=== PATIENT | female | born 1945 | race Caucasian/White ===

== ENCOUNTER 2018-11-16 07:07 | Day surgery (SDC) | payer MEDICARE ==
[~2018-11-16 07:07] MED LIST: Acetaminophen TAB* 325 MG PO PRN; Buffered Lidocaine 1% SYRIN* 1 ML/SYRINGE INTRADERM ONE
[2018-11-16] MEDS ORDERED: Midazolam* 1 MG/ML 2 ML VIAL (2 MG) ONE (08:41)
[2018-11-16] MEDS ORDERED: acetaZOLAMIDE TAB* 250 MG ONE (10:00)
[2018-11-16] MEDS ORDERED: Lidocaine 2% EPI 1:200000 MPF*10-20 ML VIAL ONE (10:00)
[2018-11-16] MEDS ORDERED: Neomycin/Polymy/Dex OPTH.SUSP* MAXITROL 0.1% 5 ML ONE (10:00)
[2018-11-16] MEDS ORDERED: Phenylephrine OPHTH SOL 2.5%* 2 ML ONE (10:00)
[2018-11-16] MEDS ORDERED: Ketorolac 0.5% OPHTH (NF) 0.5 % 5 ML BTL ONE (10:00)
[2018-11-16] MEDS ORDERED: Lidocaine 1%* 5 ML VIAL ONE (10:00)
[2018-11-16] MEDS ORDERED: Cyclopentolate 1% OPTH.SOL* 2 ML BTL ONE (10:00)
[2018-11-16] MEDS ORDERED: Povidone Iodine 5% OPTH* 30 ML BTL ONE (10:00)
[2018-11-16] MEDS ORDERED: Proparacaine 0.5% OPHTH.SOL* 15 ML BTL ONE (10:00)
--- NOTE | 2018-11-16 10:04 | OP ---
OPERATIVE NOTE: DATE OF OPERATION: 11/16/18 DATE OF : 47 SURGEON: Luis Enrique Wilson M.D. PREOPERATIVE DIAGNOSIS: Cataract, right eye. POSTOPERATIVE DIAGNOSIS: Cataract, right eye. OPERATIVE PROCEDURE: Extracapsular cataract extraction with intraocular lens implant, right eye. PROCEDURE: The patient was brought to the operating room after being given 1/2% Alcaine with epineph rine drops in the preoperative area. The eye was prepped and draped in the usual sterile fashion. S terile drape and eyelid speculum were placed. Again, topical 1/2% Alcaine with epinephrine was given . A paracentesis incision was made at the 9 o'clock position with the No.75 blade. Clear cornea inc ision 2.2 x 2.2-mm was created at the 12 o'clock position starting at the anterior limbus using the 2 .2-mm keratome. The anterior chamber was irrigated with 0.4 mL of 1% non-preservative intracameral l idocaine and filled with DisCoVisc. A capsulorrhexis was completed using the cystotome and the Utrat a forceps. Hydrodissection was performed with balanced salt solution. The lens nucleus was removed w ith the Phacoemulsification handpiece without incident. Cortex was removed with the irrigation-aspir ation handpiece. The capsular bag was re-inflated using DisCoVisc and an SN60WF 19.5 Implant was ins erted with the shooter. The irrigation-aspiration handpiece was used to remove all residual DisCoVis c. The eye was refilled with balanced salt solution and the wound checked and found to be watertight . Topical Maxitrol drops were given. [id number]/[facility] #: [id number]
[2018-11-16 10:23] VITALS: BP 157/86
== END 2018-11-16 09:48 | disposition home or self-care (01) ==
LOC: OREAST 07:07
PROVIDERS: ATTEND Specialist
DX: H25.811 Combined forms of age-related cataract, right eye (principal); H35.373 Puckering of macula, bilateral; I10 Essential (primary) hypertension; M35.3 Polymyalgia rheumatica
CPT/HCPCS: A9270-GY; J2250; V2632

== ENCOUNTER 2018-11-30 07:51 | Day surgery (SDC) | payer MEDICARE ==
[2018-11-30] MEDS ORDERED: Midazolam* 1 MG/ML 2 ML VIAL (2 MG) ONE (10:00)
[2018-11-30 11:01] VITALS: BP 140/78
[2018-11-30] MEDS ORDERED: Phenylephrine OPHTH SOL 2.5%* 2 ML ONE (11:17)
[2018-11-30] MEDS ORDERED: Ketorolac 0.5% OPHTH (NF) 0.5 % 5 ML BTL ONE (11:17)
[2018-11-30] MEDS ORDERED: Lidocaine 2% EPI 1:200000 MPF*10-20 ML VIAL ONE (11:17)
[2018-11-30] MEDS ORDERED: Lidocaine 1%** 5 ML VIAL ONE (11:17)
[2018-11-30] MEDS ORDERED: Cyclopentolate 1% OPTH.SOL* 2 ML BTL ONE (11:17)
[2018-11-30] MEDS ORDERED: acetaZOLAMIDE TAB* 250 MG ONE (11:17)
[2018-11-30] MEDS ORDERED: Povidone Iodine 5% OPTH* 30 ML BTL ONE (11:17)
[2018-11-30] MEDS ORDERED: Proparacaine 0.5% OPHTH.SOL* 15 ML BTL ONE (11:17)
[2018-11-30] MEDS ORDERED: Neomycin/Polymy/Dex OPTH.SUSP* MAXITROL 0.1% 5 ML ONE (11:17)
--- NOTE | 2018-11-30 13:14 | OP ---
DATE OF OPERATION: 11/30/2018. DATE OF : 1945. SURGEON: Luis Enrique Wilson M.D. PREOPERATIVE DIAGNOSIS: Cataract left eye. POSTOPERATIVE DIAGNOSIS: Cataract left eye. OPERATIVE PROCEDURE: Extracapsular cataract extraction with intraocular lens implant left eye. PROCEDURE: The patient was brought to the operating room after being given 1/2% Alcaine with epineph rine drops in the preoperative area. The eye was prepped and draped in the usual sterile fashion. S terile drape and eyelid speculum were placed. Again, topical 1/2% Alcaine with epinephrine was given . A paracentesis incision was made at the 3 o'clock position with the No.75 blade. Clear cornea inc ision 2.2 x 2.2-mm was created at the 6 o'clock position starting at the anterior limbus using the 2. 2-mm keratome. The anterior chamber was irrigated with 0.4 mL of 1% non-preservative intracameral li docaine and filled with DisCoVisc. A capsulorrhexis was completed using the cystotome and the Utrata forceps. Hydrodissection was performed with balanced salt solution. The lens nucleus was removed wi th the Phacoemulsification handpiece without incident. Cortex was removed with the irrigation-aspira tion handpiece. The capsular bag was re-inflated using DisCoVisc and an [id number] implant was insert ed with the shooter, oriented to the 9 degree meridian. Horizontal reference gilliland were made with th e patient in a seated position. All measurements were confirmed with ORA. The irrigation- aspiratio n handpiece was used to remove all residual DisCoVisc. The eye was refilled with balanced salt solut ion and the wound checked and found to be watertight. Topical Maxitrol drops were given. [id number]/[facility] #: [id number]
== END 2018-11-30 11:12 | disposition home or self-care (01) ==
LOC: OREAST 07:51
PROVIDERS: ATTEND Specialist
DX: H25.812 Combined forms of age-related cataract, left eye (principal); H35.373 Puckering of macula, bilateral; I10 Essential (primary) hypertension; M35.3 Polymyalgia rheumatica
CPT/HCPCS: A9270-GY; J2250; V2787

== ENCOUNTER 2022-12-05 20:26 | Inpatient (IN) ==
[2022-12-05 21:09] LABS: ABS Basophils 0.1 10^3/uL (0.0-0.1); ABS Eosinophils 0.1 10^3/uL (0.0-0.5); ABS Lymphocytes 3.5 10^3/uL (1.0-4.8); ABS Monocytes 0.5 10^3/uL (0.0-0.9); ABS Neutrophils 7.2 10^3/uL (1.5-7.6); Hematocrit 44.8 % (35-45); Hemoglobin 14.7 g/dL (11.5-14.3); Mean Corpuscular Hemoglobin 29.1 pg (27-33); Mean Corpuscular Hgb Conc 32.9 g/dL (31-36); Mean Corpuscular Volume 88.2 fL (80-97); Mean Platelet Volume 10.3 fL (7.5-11.2); Platelet Count 192 10^3/uL (150-450); Red Blood Count 5.07 10^6/uL (3.63-4.92); Red Cell Distribution Width 13.8 % (12-17); White Blood Count 11.5 10^3/uL (3.8-11.8)
[2022-12-05 21:10] LABS: ABS Nucleated RBC 0.01 10^3/ul; Eosinophil % 0.9 %; Lymphocyte % 30.5 %; Nucleated Red Blood Cells % 0.1 /100 WBC (0.0-0.4)
[2022-12-05] MEDS ORDERED: Lactated Ringers 1000 ml BAG 1,000 ML IV ONE (21:23)
[2022-12-05 21:26] LABS: Albumin 4.4 g/dL (3.2-5.2); Albumin/Globulin Ratio 1.6 (1-3); Creatinine, Serum 0.86 mg/dL (0.51-0.95); Globulin 2.8 g/dL (2-4); Magnesium 1.9 mg/dL (1.9-2.7); Potassium 3.6 mmol/L (3.5-5.0); Total Bilirubin 1.5 mg/dL (0.2-1.0); Total Protein 7.2 g/dL (6.4-8.9)
[2022-12-05] MEDS ORDERED: Iodixanol (CONTRAST) 320 MG/ML 100 ML SDV IV ONE (21:38)
[2022-12-05] MEDS ORDERED: Ondansetron 4 mg VIAL 2 MG/ML 2 ml VIAL IV ONE (21:56)
[2022-12-05 22:05] LABS: TSH Ultra Thyroid Stim Horm 2.86 mcIU/mL (0.34-5.60)
[2022-12-06 01:38] LABS: High Sensitivity Troponin 1 Hr 17 pg/mL (<15)
[2022-12-06] MEDS: Metoprolol Tartrate 5 mg VIAL 5 ml VIAL (1 mg/ml) IV PRN ×2 (01:56→09:24)
[2022-12-06] MEDS ORDERED: Dextrose 50% Syringe 50 ml 25 GM/50 ML SYRINGE IV PUSH PRN (01:58)
[2022-12-06] MEDS ORDERED: Furosemide 40 mg/4 ml IV VIAL IV ONE ×2 (02:00→09:00)
[2022-12-06 05:48] LABS: ABS Basophils 0.1 10^3/uL (0.0-0.1); ABS Lymphocytes 2.8 10^3/uL (1.0-4.8); ABS Monocytes 0.7 10^3/uL (0.0-0.9); ABS Neutrophils 8.1 10^3/uL (1.5-7.6); ABS Nucleated RBC 0.02 10^3/ul; Eosinophil % 0.4 %; Hematocrit 43.6 % (35-45); Hemoglobin 14.3 g/dL (11.5-14.3); Lymphocyte % 23.7 %; Mean Corpuscular Hgb Conc 32.9 g/dL (31-36); Mean Corpuscular Volume 88.2 fL (80-97); Mean Platelet Volume 10.4 fL (7.5-11.2); Nucleated Red Blood Cells % 0.1 /100 WBC (0.0-0.4); Platelet Count 201 10^3/uL (150-450); Red Blood Count 4.94 10^6/uL (3.63-4.92); Red Cell Distribution Width 14.2 % (12-17); White Blood Count 11.6 10^3/uL (3.8-11.8)
[2022-12-06 06:04] LABS: Albumin 4.5 g/dL (3.2-5.2); Albumin/Globulin Ratio 1.7 (1-3); Calcium 9.6 mg/dL (8.6-10.3); Creatinine, Serum 0.9 mg/dL (0.51-0.95); Globulin 2.7 g/dL (2-4); Magnesium 1.8 mg/dL (1.9-2.7); Potassium 3.7 mmol/L (3.5-5.0); Total Bilirubin 1.6 mg/dL (0.2-1.0); Total Protein 7.2 g/dL (6.4-8.9); eGFR CKD-EPI 66.3 (>60)
[2022-12-06] MEDS: Furosemide 40 mg/4 ml IV VIAL IV SLOW PU SCH (08:20)
[2022-12-06] MEDS ORDERED: Magnesium Sulfate IV 1GM/100ML 1 GM/100 ML BAG IV ONE (09:42)
[2022-12-06] MEDS ORDERED: Potassium EFFERVES 25 meq TAB PO ONE (09:47)
[2022-12-06] MEDS ORDERED: Magnesium Sulfate 2 gm BAG 2 GM/50 ML BAG IVPB ONE (09:47)
[2022-12-07] MEDS: Metoprolol Tartrate 5 mg VIAL 5 ml VIAL (1 mg/ml) IV PRN ×2 (03:25→08:47)
[2022-12-07 06:07] LABS: ABS Basophils 0.1 10^3/uL (0.0-0.1); ABS Eosinophils 0.2 10^3/uL (0.0-0.5); ABS Lymphocytes 3.2 10^3/uL (1.0-4.8); ABS Monocytes 0.7 10^3/uL (0.0-0.9); ABS Neutrophils 7.6 10^3/uL (1.5-7.6); ABS Nucleated RBC 0.01 10^3/ul; Eosinophil % 1.5 %; Hemoglobin 13.8 g/dL (11.5-14.3); Lymphocyte % 27.4 %; Mean Corpuscular Hemoglobin 29.6 pg (27-33); Mean Corpuscular Hgb Conc 32.8 g/dL (31-36); Mean Corpuscular Volume 90.2 fL (80-97); Mean Platelet Volume 10.3 fL (7.5-11.2); Nucleated Red Blood Cells % 0.1 /100 WBC (0.0-0.4); Platelet Count 180 10^3/uL (150-450); Red Blood Count 4.66 10^6/uL (3.63-4.92); Red Cell Distribution Width 13.9 % (12-17); White Blood Count 11.7 10^3/uL (3.8-11.8)
[2022-12-07 06:19] LABS: Calcium 9.1 mg/dL (8.6-10.3); Creatinine, Serum 1.07 mg/dL (0.51-0.95); Magnesium 2.3 mg/dL (1.9-2.7); Potassium 3.6 mmol/L (3.5-5.0); eGFR CKD-EPI 53.8 (>60)
[2022-12-07] MEDS: Furosemide 40 mg/4 ml IV VIAL IV SLOW PU SCH (08:01)
[2022-12-07 09:56] LABS: Albumin 4.2 g/dL (3.2-5.2); Albumin/Globulin Ratio 1.8 (1-3); Direct Bilirubin 0.2 mg/dL (0.03-0.18); Globulin 2.4 g/dL (2-4); Indirect Bilirubin 1.2 mg/dL (0.3-1.0); Total Bilirubin 1.4 mg/dL (0.2-1.0); Total Protein 6.6 g/dL (6.4-8.9)
[2022-12-07] MEDS ORDERED: Potassium Chlor 20 meq TAB.ER PO ONE (11:09)
[2022-12-07] MEDS ORDERED: Furosemide 40 mg/4 ml IV VIAL IV SLOW PU ONE (14:00)
[2022-12-07] MEDS ORDERED: Digoxin IV 0.5 MG/2 ML AMP (0.25 MG/ML) IV SLOW PU ONE ×2 (16:19→22:00)
[2022-12-08] MEDS ORDERED: Furosemide 40 mg/4 ml IV VIAL IV SLOW PU SCH (06:00)
[2022-12-08 06:39] LABS: Albumin 4.4 g/dL (3.2-5.2); Albumin/Globulin Ratio 1.6 (1-3); C Reactive Protein 14.23 mg/L (<8.01); Calcium 9.5 mg/dL (8.6-10.3); Creatinine, Serum 1.05 mg/dL (0.51-0.95); Direct Bilirubin 0.2 mg/dL (0.03-0.18); Globulin 2.7 g/dL (2-4); Indirect Bilirubin 1.2 mg/dL (0.3-1.0); Potassium 3.3 mmol/L (3.5-5.0); Total Bilirubin 1.4 mg/dL (0.2-1.0); Total Protein 7.1 g/dL (6.4-8.9); eGFR CKD-EPI 55.1 (>60)
[2022-12-08] MEDS ORDERED: Potassium Chlor 20 meq TAB.ER PO ONE ×2 (07:05→13:00)
[2022-12-08 07:12] LABS: Ferritin 209.8 ng/mL (11-307)
[2022-12-08] MEDS ORDERED: Digoxin IV 0.5 MG/2 ML AMP (0.25 MG/ML) IV SLOW PU ONE (08:50)
[2022-12-08] MEDS ORDERED: Iron Sucrose 20 MG/ML 5 ML VIAL IV PUSH SCH (09:00)
[2022-12-08 09:14] LABS: HDL Cholesterol 43.4 mg/dL
[2022-12-08] MEDS: Iron Sucrose 200 MG in NS 0.9% 100 ml IVPB SCH (10:00)
[2022-12-09] MEDS ORDERED: Furosemide 40 mg/4 ml IV VIAL IV SLOW PU SCH (06:00)
[2022-12-09 06:31] LABS: ABS Basophils 0.1 10^3/uL (0.0-0.1); ABS Eosinophils 0.2 10^3/uL (0.0-0.5); ABS Lymphocytes 2.5 10^3/uL (1.0-4.8); ABS Monocytes 0.8 10^3/uL (0.0-0.9); ABS Neutrophils 6.8 10^3/uL (1.5-7.6); ABS Nucleated RBC 0.01 10^3/ul; Eosinophil % 1.8 %; Hematocrit 43.8 % (35-45); Hemoglobin 14.5 g/dL (11.5-14.3); Lymphocyte % 24.3 %; Mean Corpuscular Hemoglobin 29.7 pg (27-33); Mean Corpuscular Volume 89.9 fL (80-97); Mean Platelet Volume 10.1 fL (7.5-11.2); Nucleated Red Blood Cells % 0.1 /100 WBC (0.0-0.4); Platelet Count 210 10^3/uL (150-450); Red Blood Count 4.87 10^6/uL (3.63-4.92); Red Cell Distribution Width 13.5 % (12-17); White Blood Count 10.3 10^3/uL (3.8-11.8)
[2022-12-09] MEDS ORDERED: NS 0.9% 1000 ml BAG 1,000 ML IV ONE (07:00)
[2022-12-09 07:11] LABS: Calcium 9.4 mg/dL (8.6-10.3); Magnesium 2.1 mg/dL (1.9-2.7); Potassium 3.6 mmol/L (3.5-5.0)
[2022-12-09 07:16] LABS: Creatinine, Serum 0.85 mg/dL (0.51-0.95)
[2022-12-09] MEDS ORDERED: Potassium Chlor 20 meq TAB.ER PO ONE ×3 (09:09→17:00)
[2022-12-09] MEDS ORDERED: Flumazenil 0.5 mg/5 ml 0.1 MG/ML 5 ml VIAL ONE (12:01)
[2022-12-09] MEDS ORDERED: fentaNYL 100 mcg/2 ml 50 MCG/ML VIAL ONE (12:01)
[2022-12-09] MEDS ORDERED: Naloxone 0.4 mg VIAL 0.4 mg/ml 1 ml VIAL ONE (12:01)
[2022-12-09] MEDS ORDERED: Midazolam 5 mg/5 ml VIAL 1 mg/ml 5 ml VIAL (5 mg) ONE (12:01)
[2022-12-09] MEDS ORDERED: Benzocaine/Butamben/Tetracain (CETACAINE - SINGLE USE) 5 gm TOPICAL ONE (12:30)
[2022-12-09] MEDS ORDERED: Midazolam 10 mg/10 ml VIAL 1 mg/ml 10 ml VIAL (10 mg) IV SLOW PU ONE (12:37)
[2022-12-09] MEDS ORDERED: fentaNYL 100 mcg/2 ml 50 MCG/ML VIAL IV SLOW PU ONE (12:37)
[2022-12-09] MEDS: Amiodarone 400 mg TAB PO SCH ×2 (15:21→20:17)
[2022-12-09] MEDS: Iron Sucrose 200 MG in NS 0.9% 100 ml IVPB SCH (15:26)
[2022-12-09 17:38] LABS: Calcium 9.8 mg/dL (8.6-10.3); Creatinine, Serum 1.03 mg/dL (0.51-0.95); eGFR CKD-EPI 56.4 (>60)
[2022-12-10] MEDS ORDERED: Potassium Chlor 20 meq TAB.ER PO SCH (09:00)
[2022-12-10] MEDS: Amiodarone 400 mg TAB PO SCH (10:02)
[2022-12-10] MEDS: Iron Sucrose 200 MG in NS 0.9% 100 ml IVPB SCH (10:12)
[2022-12-10 10:41] VITALS: BP 155/68
[2022-12-10 11:17] LABS: Calcium 9.7 mg/dL (8.6-10.3); Creatinine, Serum 0.88 mg/dL (0.51-0.95); Magnesium 2.2 mg/dL (1.9-2.7); eGFR CKD-EPI 68.1 (>60)
[2022-12-10] MEDS ORDERED: Regadenoson 0.4 MG/5 ML SYRINGE ONE (11:44)
[2022-12-14] MEDS ORDERED: Amiodarone 400 mg TAB PO SCH (09:00)
== END 2022-12-10 15:50 | disposition home or self-care (01) | DRG 291 ==
LOC: EDHOLD 20:26 → ED 20:26 → SUATTDRO 12-06 00:26 → MEDTELE 12-06 02:45
PROVIDERS: ADMIT Hospitalist; ATTEND Internal Medicine